=== PATIENT | male | born 1985 | race Caucasian/White ===

== ENCOUNTER → 2018-05-14 | Outpatient (CLI) | payer OTHER ==
--- NOTE | 2018-05-14 13:32 | Diagnostic Imaging Report ---
PROCEDURE: A single AP view of the chest. COMPARISON: None. INDICATIONS: LEFT SIDED RIB PAIN IMPRESSION: No evidence of left sided rib fracture. Dictated by: David Blanco M.D. on 05/14/2018 at 13:39 Electronically approved by: David Blanco M.D. on 05/14/2018 at 13:39
--- NOTE | 2018-05-14 13:32 | Diagnostic Imaging Report ---
PROCEDURE:X-RAY UNILATERAL RIBS WITH CHEST X-RAY COMPARISON:None. INDICATIONS:LEFT SIDE RIB PAIN INCREASING WORSE FINDINGS: No lung consolidation. No pleural effusion or pneumothorax. No left sided rib fracture. CONCLUSION: No evidence of left sided rib fracture. Dictated by: David Blanco M.D. on 05/14/2018 at 13:38 Electronically approved by: David Blanco M.D. on 05/14/2018 at 13:38
== END ==
LOC: RAD 11:54
PROVIDERS: ATTEND Internal Medicine
DX: R07.89 Other chest pain (principal)
CPT/HCPCS: 71045; 71101

== ENCOUNTER → 2018-10-01 | Outpatient (CLI) | payer OTHER ==
--- NOTE | 2018-10-01 20:48 | Diagnostic Imaging Report ---
EXAMINATION: CT scan of the chest with contrast. TECHNIQUE: Spiral CT images of the chest were performed from the lung apices to the level of the adrenal glands after the intravenous administration of 100 cc of Isovue 370. Coronal and sagittal reformatted images were obtained. COMPARISON: None. CLINICAL HISTORY:Lower chest pain for several years DISCUSSION: LINES/TUBES: None. LUNGS AND AIRWAYS: The lungs are clear. No pulmonary nodules, masses or consolidation. The airways are normal, without endobronchial lesions. PLEURA: No pneumothorax or pleural effusions. HEART AND MEDIASTINUM: The thyroid gland is normal. The heart and pericardium are within normal limits. Aorta is nonaneurysmal. Main pulmonary artery measures 2.8 cm. LYMPH NODES: There is no mediastinal, hilar or axillary lymphadenopathy. ABDOMEN: Limited contrast-enhanced views of the upper abdomen show no abnormality within the visualized liver, spleen, pancreas, or kidneys. The adrenal glands are unremarkable. BONES AND SOFT TISSUES: No aggressive lytic lesions. Soft tissues are unremarkable. IMPRESSION: 1. Essentially unremarkable chest CT. Signed by: Dr. Shawn Parker M.D. on 10/01/2018 8:44 PM
== END ==
LOC: CT 17:51
PROVIDERS: ATTEND Internal Medicine
DX: R07.9 Chest pain, unspecified (principal); R06.02 Shortness of breath
CPT/HCPCS: 71260